=== PATIENT | female | born 1940 | race Caucasian/White ===

== ENCOUNTER 2023-10-26 05:45 | Inpatient (IN) | payer MEDICARE, OTHER ==
--- NOTE | 2023-10-26 06:37 | ED ---
Lower Extremity Injury HPI - General Chief Complaint: Extremity Injury, Lower Stated Complaint: Fall Time Seen by Provider: 10/26/23 06:11 Source: family, RN notes reviewed Mode of arrival: wheelchair Limitations: no limitations - History of Present Illness Initial Comments: This is an 83 year old female who presents to the emergency department for a fal l. Patient has a bad left knee and she got up to use the restroom last night, when she tripped on the steps and fell, landing on her left side. She has since had increasing pain to the left knee and hip. Denies hitting her head or sustaining any other injuries. Not taking thinners. Patient has dementia and has a general poor understanding of the situation and explaining herself. However, she does appear to be in severe pain. MD Complaint: knee injury - Related Data Home Medications Medication Instructions Recorded Confirmed Atorvastatin [Lipitor] 20 mg PO HS 10/26/23 10/26/23 Cholecalciferol (Vitamin D3) 50 mcg PO DAILY 10/26/23 10/26/23 [Vitamin D3 (50 Mcg = 2000 Iu)] Donepezil [Aricept] 5 mg PO DAILY 10/26/23 10/26/23 Losartan [Cozaar] 50 mg PO DAILY 10/26/23 10/26/23 Meloxicam [Mobic] 7.5 mg PO DAILY 10/26/23 10/26/23 Terbinafine [LamISIL] 250 mg PO DAILY 10/26/23 10/26/23 traMADol HCL 50 mg PO DAILY 10/26/23 10/26/23 Allergies Allergy/AdvReac Type Severity Reaction Status Date / Time No Known Allergies Allergy Verified 10/26/23 09:47 Review of Systems ROS Statement: Those systems with pertinent positive or pertinent negative responses have been documented in the HPI. ROS Other: All systems not noted in ROS Statement are negative. Past Medical History Past Medical History: Dementia, Hypertension History of Any Multi-Drug Resistant Organisms: None Reported Past Surgical History: No Surgical Hx Reported Past Psychological History: No Psychological Hx Reported Smoking Status: Never smoker Past Alcohol Use History: None Reported Past Drug Use History: None Reported General Exam Limitations: no limitations General appearance: alert, in no apparent distress Head exam: Present: atraumatic, normocephalic, normal inspection Respiratory exam: Present: normal lung sounds bilaterally. Absent: respiratory distress, wheezes, rales, rhonchi, stridor Cardiovascular Exam: Present: regular rate, normal rhythm, normal heart sounds. Absent: systolic murmur, diastolic murmur, rubs, gallop, clicks Extremities exam: Present: other (Shortening and external rotation of the left lower extremity. Tenderness to palpation of the left hip and left leg. Obvious swelling.) Neurological exam: Present: alert, oriented X3, CN II-XII intact Psychiatric exam: Present: normal affect, normal mood Skin exam: Present: warm, dry, intact, normal color. Absent: rash Course Vital Signs 10/26/23 10/26/23 06:06 11:37 Temperature 98.5 F Pulse Rate 92 86 Respiratory 18 16 Rate Blood Pressure 186/97 130/80 O2 Sat by Pulse 96 98 Oximetry Medical Decision Making - Medical Decision Making This is an 83 year old female who presents to the emergency department for a fall. Was pt. sent in by a medical professional or institution? @ -No Did you speak to anyone other than the patient for history? @ -No Did you review nursing and triage notes? @ -Yes, and I agree, it is accurate with regards to the patient's symptoms. Were old charts reviewed? @ -No Differential Diagnosis? @ -Differential Musculoskeletal: Muscular strain, contusion, ligament sprain, fracture, arthritis, septic arthritis, bursitis, cellulitis, muscle spasm, nerve compression, DVT, arterial occlusion, herpes zoster, electrolyte abnormality, tumor.... This is not meant to be in all inclusive list EKG interpreted by me (3pts min.)? @ -EKG interpreted by me demonstrating the following: Sinus rhythm. Ventricular rate 91 BPM, AK interval 195 ms, QRS duration 90 ms, QTc 409 ms. X-rays interpreted by me (1pt min.)? @ -X-ray of the Left knee obtained. My interpretation identifies no acute fractures. X-ray of the left hip and pelvis obtained. My interpretation identifies a left intertrochanteric fracture. CT interpreted by me (1pt min.)? @ -Not obtained U/S interpreted by me (1pt. min.)? @ -Not obtained What testing was considered but not performed? (CT, X-rays, U/S, labs)? Why? @ -None What meds were considered but not given? Why? @ -None Did you discuss the management of the patient with other professionals? @ -Yes, Dr. Staton, who accepts the patient for admission. Did you reconcile home meds? @ -No Was smoking cessation discussed for >3mins.? @ -No Was critical care preformed (if so, how long)? @ -No Were there social determinants of health that impacted care today? How? (Home lessness, low income, unemployed, alcoholism, drug addiction, transportation, low edu. Level, literacy, decrease access to med. care, detention, rehab)? @ -No Was there de-escalation of care discussed even if they declined? (Discuss DNR or withdrawal of care, Hospice)? @ -No What co-morbidities impacted this encounter? (DM, HTN, Smoking, COPD, CAD, Cancer, CVA, Hep., AIDS, mental health diagnosis, sleep apnea, morbid obesity)? @ -Dementia Was patient admitted / discharged? @ -Admitted. X-ray of the left knee, left hip, and pelvis obtained demonstrating a comminuted left intertrochanteric fracture of the proximal left femur with mild displacement and slight medial and posterior angulation. X-ray of the left knee reveals a trace knee joint effusion and degenerative changes without any acute fractures. Preoperative lab work, EKG, and chest x-ray were obtained. Workup found to be fairly unremarkable. Patient admitted to orthopedics with medicine listed as consult. Medicine consulted directly for quick surgical clearance and potential operative intervention today. We'll keep patient nothing by mouth for the meantime. Undiagnosed new problem with uncertain prognosis? @ -None Drug Therapy requiring intensive monitoring for toxicity (Heparin, Nitro, Insulin, Cardizem)? @ -None Were any procedures done? @ -None Diagnosis/symptom? @ -Fall, left intertrochanteric fracture Acute, or Chronic, or Acute on Chronic? @ -Acute Uncomplicated (without systemic symptoms) or Complicated (systemic symptoms)? @ -Complicated Side effects of treatment? @ -None Exacerbation, Progression, or Severe Exacerbation] @ -Not applicable Poses a threat to life or bodily function? @ -Yes This case was discussed in detail with the attending ED physician, Dr. Ely. Presentation, findings, and treatment plan discussed in detail as well. - Lab Data Result diagrams: 10/26/23 07:44 10/26/23 07:44 Lab Results 10/26/23 10/26/23 10/26/23 Range/Units 07:44 07:44 07:44 WBC 13.7 H (3.8-10.6) k/uL RBC 3.92 (3.80-5.40) m/uL Hgb 12.1 (11.4-16.0) gm/dL Hct 37.3 (34.0-46.0) % MCV 95.3 (80.0-100.0) fL MCH 30.9 (25.0-35.0) pg MCHC 32.4 (31.0-37.0) g/dL RDW 13.8 (11.5-15.5) % Plt Count 346 (150-450) k/uL MPV 6.8 Neutrophils % 84 % Lymphocytes % 8 % Monocytes % 6 % Eosinophils % 1 % Basophils % 1 % Neutrophils # 11.5 H (1.3-7.7) k/uL Lymphocytes # 1.1 (1.0-4.8) k/uL Monocytes # 0.8 (0-1.0) k/uL Eosinophils # 0.1 (0-0.7) k/uL Basophils # 0.1 (0-0.2) k/uL PT 9.8 L (10.0-12.5) sec INR 0.9 (<1.2) APTT 24.3 (22.0-30.0) sec Sodium 139 (137-145) mmol/L Potassium 4.2 (3.5-5.1) mmol/L Chloride 105 (98-107) mmol/L Carbon Dioxide 27 (22-30) mmol/L Anion Gap 7 mmol/L BUN 19 H (7-17) mg/dL Creatinine 0.96 (0.52-1.04) mg/dL Est GFR (CKD-EPI)AfAm 64 (>60 ml/min/1.73 sqM) Est GFR (CKD-EPI)NonAf 56 (>60 ml/min/1.73 sqM) Glucose 137 H (74-99) mg/dL Calcium 9.5 (8.4-10.2) mg/dL Total Bilirubin 0.6 (0.2-1.3) mg/dL AST 32 (14-36) U/L ALT 20 (4-34) U/L Alkaline Phosphatase 118 (38-126) U/L Troponin I (0.000-0.034) ng/mL Total Protein 7.1 (6.3-8.2) g/dL Albumin 4.2 (3.5-5.0) g/dL Blood Type Blood Type Confirm Blood Type Recheck Bld Type Recheck Status Antibody Screen Spec Expiration Date 10/26/23 10/26/23 10/26/23 Range/Units 07:44 07:45 07:53 WBC (3.8-10.6) k/uL RBC (3.80-5.40) m/uL Hgb (11.4-16.0) gm/dL Hct (34.0-46.0) % MCV (80.0-100.0) fL MCH (25.0-35.0) pg MCHC (31.0-37.0) g/dL RDW (11.5-15.5) % Plt Count (150-450) k/uL MPV Neutrophils % % Lymphocytes % % Monocytes % % Eosinophils % % Basophils % % Neutrophils # (1.3-7.7) k/uL Lymphocytes # (1.0-4.8) k/uL Monocytes # (0-1.0) k/uL Eosinophils # (0-0.7) k/uL Basophils # (0-0.2) k/uL PT (10.0-12.5) sec INR (<1.2) APTT (22.0-30.0) sec Sodium (137-145) mmol/L Potassium (3.5-5.1) mmol/L Chloride (98-107) mmol/L Carbon Dioxide (22-30) mmol/L Anion Gap mmol/L BUN (7-17) mg/dL Creatinine (0.52-1.04) mg/dL Est GFR (CKD-EPI)AfAm (>60 ml/min/1.73 sqM) Est GFR (CKD-EPI)NonAf (>60 ml/min/1.73 sqM) Glucose (74-99) mg/dL Calcium (8.4-10.2) mg/dL Total Bilirubin (0.2-1.3) mg/dL AST (14-36) U/L ALT (4-34) U/L Alkaline Phosphatase (38-126) U/L Troponin I <0.012 (0.000-0.034) ng/mL Total Protein (6.3-8.2) g/dL Albumin (3.5-5.0) g/dL Blood Type A Positive Blood Type Confirm A Positive Blood Type Recheck No Previous Record Bld Type Recheck Status CABO Indicated Antibody Screen NEGATIVE Spec Expiration Date 10/29/2023 - 234 - Radiology Data Radiology results: report reviewed, image reviewed Disposition Clinical Impression: Fracture, intertrochanteric, left femur, Fall Disposition: ADMITTED IP TO THIS [facility] Time of Disposition: 09:26
--- NOTE | 2023-10-26 07:44 | XR ---
EXAMINATION TYPE: XR knee complete LT DATE OF EXAM: 10/26/2023 COMPARISON: None HISTORY: 83-year-old female trauma, pain TECHNIQUE: AP, oblique, lateral views FINDINGS: There is some degenerative joint space narrowing in the medial compartment. Extensor mechanism appear s intact. Prominent spurring at the upper pole of the patella. Trace knee joint effusion is nonspecif ic and may be reactive. No acute fracture, subluxation, dislocation is seen. IMPRESSION: 1. Some degenerative joint space narrowing in the medial compartment. 2. Prominent spurring at the upper pole of the patella, possibly related to insertional quadriceps te ndinosis. 3. Trace knee joint effusion which is nonspecific. No acute osseous abnormality seen. If concern for internal derangement, MRI can be considered.
[2023-10-26] MEDS: MORPHINE SULFATE 4 MG/ML SYRINGE IM STA (07:48)
[2023-10-26] MEDS: KETOROLAC 15 MG/ML 1 ML VIAL IM STA (07:48)
[2023-10-26 08:04] LABS: Basophils # (A) 0.1 k/uL (0-0.2); Basophils % (A) 1 %; Eosinophils # (A) 0.1 k/uL (0-0.7); Eosinophils % (A) 1 %; HCT 37.3 % (34.0-46.0); HGB 12.1 gm/dL (11.4-16.0); Lymphocytes # (A) 1.1 k/uL (1.0-4.8); Lymphocytes % (A) 8 %; MCH 30.9 pg (25.0-35.0); MCHC 32.4 g/dL (31.0-37.0); MCV 95.3 fL (80.0-100.0); Mean Platelet Volume 6.8; Monocytes # (A) 0.8 k/uL (0-1.0); Monocytes % (A) 6 %; Neutrophils # (A) 11.5 k/uL (1.3-7.7); Neutrophils % (A) 84 %; Platelet Count 346 k/uL (150-450); RBC 3.92 m/uL (3.80-5.40); RDW 13.8 % (11.5-15.5); WBC 13.7 k/uL (3.8-10.6)
[2023-10-26 08:17] LABS: ALT 20 U/L (4-34); AST 32 U/L (14-36); African American GFR (CKD) 64 (>60 ml/min/1.73 sqM); Albumin 4.2 g/dL (3.5-5.0); Alkaline Phosphatase 118 U/L (38-126); Anion Gap 7 mmol/L; Blood Urea Nitrogen 19 mg/dL (7-17); Calcium 9.5 mg/dL (8.4-10.2); Carbon Dioxide 27 mmol/L (22-30); Chloride 105 mmol/L (98-107); Glucose 137 mg/dL (74-99); Non-African American GFR(CKD) 56 (>60 ml/min/1.73 sqM); Potassium 4.2 mmol/L (3.5-5.1); Sodium 139 mmol/L (137-145); Total Bilirubin 0.6 mg/dL (0.2-1.3); Total Protein 7.1 g/dL (6.3-8.2)
[2023-10-26 08:20] LABS: INR 0.9 (<1.2); Partial Thromboplastin Time 24.3 sec (22.0-30.0); Prothrombin Time 9.8 sec (10.0-12.5)
--- NOTE | 2023-10-26 08:41 | XR ---
EXAMINATION TYPE: XR Hip 2 views LT and AP Pelvis DATE OF EXAM: 10/26/2023 Comparison: None Clinical History: 83-year-old female rotated, fall hip femur pain Findings: Degenerated dextroconvex curvature lumbar spine. Osteopenia. Mild degenerative changes SI joints. Mod erate degenerative change right hip and mild of the left hip. There is comminuted intertrochanteric f racture proximal left femur with slight displacement and medial and posterior angulation. Impression: Comminuted IT fracture proximal left femur with mild displacement and slight medial and posterior ang ulation.
[2023-10-26] MEDS ORDERED: NALOXONE 0.4 MG/ML 1 ML VIAL IV PRN ×2 (09:26→15:29)
[2023-10-26] MEDS ORDERED: HYDROmorphone 1 MG/ML 1 ML SYRINGE IVP PRN (09:26)
[2023-10-26] MEDS ORDERED: ONDANSETRON 4 MG/2 ML VIAL IVP PRN (09:26)
[2023-10-26] MEDS ORDERED: HYDROmorphone 0.5 MG/0.5 ML SYRINGE IVP PRN ×4 (09:26→15:29)
[2023-10-26] MEDS: HYDROmorphone 0.5 MG/0.5 ML SYRINGE IVP STA (09:40)
--- NOTE | 2023-10-26 10:04 | XR ---
EXAMINATION TYPE: XR chest 1V DATE OF EXAM: 10/26/2023 COMPARISON: NONE HISTORY: 83-year-old female preoperative clearance for hip fracture TECHNIQUE: Single frontal view of the chest is obtained. FINDINGS: Heart upper limits of normal in size. Hazy densities relating to portable technique and louis dy habitus. Aorta and pulmonary vasculature within normal limits. No consolidation or pleural effusio n. IMPRESSION: Borderline heart size. No acute process seen.
--- NOTE | 2023-10-26 10:49 | P.CONS ---
History of Present Illness - Reason for Consult Consult date: 10/26/23 Medical management - History of Present Illness History of present illness; patient is 83-year-old lady with past medical hi story significant for dementia, hypertension presented to the ER after a fall. Patient woke up last night to use the restroom when she was walking up the steps and tripped and fell on her left side. Following that she started complaining of left hip pain. There was no loss of consciousness. There is no complaint of chest pain or shortness of breath. Because of this fall, patient was brought to the ER Initial lab work done in the ER showed WBC 13.7, hemoglobin 12.1, platelet count 346, sodium 139, potassium 4.2, BUN 19, creatinine 0.96, glucose 137, troponin 0.012 EKG done in the ER showed heart rate of 91 , no ST segment elevation or depression seen, no T-wave inversions seen. Chest x-ray done in the ER showed no acute processes X-ray left hip done showed comminuted intertrochanteric fracture of proximal left femur X-ray left knee done showed some degenerative joint space narrowing in the medial compartment Patient admitted to orthopedic service REVIEW OF SYSTEMS: CONSTITUTIONAL: No fever, no malaise, no fatigue. HEENT: No recent visual problems or hearing problems. Denied any sore throat. CARDIOVASCULAR: No chest pain, orthopnea, PND, no palpitations, no syncope. PULMONARY: No shortness of breath, no cough, no hemoptysis. GASTROINTESTINAL: No diarrhea, no nausea, no vomiting, no abdominal pain. NEUROLOGICAL: No headaches, no weakness, no numbness. HEMATOLOGICAL: Denies any bleeding or petechiae. GENITOURINARY: Denies any burning micturition, frequency, or urgency. MUSCULOSKELETAL/RHEUMATOLOGICAL: Left hip pain ENDOCRINE: Denies any polyuria or polydipsia. The rest of the 14-point review of systems is negative. PHYSICAL EXAMINATION: GENERAL: The patient is alert to self and person, not in any acute distress. Well developed, well nourished. HEENT: Pupils are round and equally reacting to light. EOMI. No scleral icterus. No conjunctival pallor. Normocephalic, atraumatic. No pharyngeal erythema. No thyromegaly. CARDIOVASCULAR: S1 and S2 present. No murmurs, rubs, or gallops. PULMONARY: Chest is clear to auscultation, no wheezing or crackles. ABDOMEN: Soft, nontender, nondistended, normoactive bowel sounds. No palpable organomegaly. MUSCULOSKELETAL: No joint swelling or deformity. EXTREMITIES: No cyanosis, clubbing, or pedal edema. NEUROLOGICAL: Gross neurological examination did not reveal any focal deficits. SKIN: No rashes. Assessment and plan Fall Comminuted intertrochanteric fracture of proximal left femur Hypertension Dementia Monitor vital signs Monitor CBC Continue IV fluid Keep patient n.p.o. Continue pain management per orthopedics Continue DVT prophylaxis per orthopedics Resume home meds Patient is medically cleared for surgery with moderate risk of complications PT and OT consulted after surgery Labs and medication were reviewed.. Continue same treatment. Continue with symptomatic treatment. Resume home medication. Monitor labs and vitals. DVT and GI prophylaxis. Further recommendations as per clinical course of the patient Dictation was produced using [employer] dictation software. please excuse any grammatical, word or spelling errors. Past Medical History Past Medical History: Dementia, Hypertension History of Any Multi-Drug Resistant Organisms: None Reported Past Surgical History: No Surgical Hx Reported Past Psychological History: No Psychological Hx Reported Smoking Status: Never smoker Past Alcohol Use History: None Reported Past Drug Use History: None Reported Medications and Allergies Home Medications Medication Instructions Recorded Confirmed Type Atorvastatin [Lipitor] 20 mg PO HS 10/26/23 10/26/23 History Cholecalciferol (Vitamin D3) 50 mcg PO DAILY 10/26/23 10/26/23 History [Vitamin D3 (50 Mcg = 2000 Iu)] Donepezil [Aricept] 5 mg PO DAILY 10/26/23 10/26/23 History Losartan [Cozaar] 50 mg PO DAILY 10/26/23 10/26/23 History Meloxicam [Mobic] 7.5 mg PO DAILY 10/26/23 10/26/23 History Terbinafine [LamISIL] 250 mg PO DAILY 10/26/23 10/26/23 History traMADol HCL 50 mg PO DAILY 10/26/23 10/26/23 History Allergies Allergy/AdvReac Type Severity Reaction Status Date / Time No Known Allergies Allergy Verified 10/26/23 09:47 Physical Exam Vitals: Vital Signs Temp Pulse Resp BP Pulse Ox 10/26/23 06:06 98.5 F 92 18 186/97 96 Intake and Output 10/25/23 10/26/23 10/26/23 22:59 06:59 14:59 Other: Weight 65.771 kg Results CBC & Chem 7: 10/26/23 07:44 10/26/23 07:44 Labs: Abnormal Lab Results - Last 24 Hours (Table) 10/26/23 10/26/23 10/26/23 Range/Units 07:44 07:44 07:44 WBC 13.7 H (3.8-10.6) k/uL Neutrophils # 11.5 H (1.3-7.7) k/uL PT 9.8 L (10.0-12.5) sec BUN 19 H (7-17) mg/dL Glucose 137 H (74-99) mg/dL
[2023-10-26] MEDS: LACTATED RINGERS 1,000 ML IV ONE ×2 (11:43→15:13)
[2023-10-26] MEDS: fentaNYL (PF) 50 MCG/ML 2 ML AMP IVP ONE (12:31)
--- NOTE | 2023-10-26 12:41 | P.ANPRN ---
Procedure Note - Anesthesia - Nerve Block Performed Left Grayson Single Time Out Performed: Yes Date of Procedure: 10/26/23 Procedure Start Time: 12:30 Procedure Stop Time: 12:36 Location of Patient: PreOp Indication: Acute Post-Operative Pain, Analgesia, Requested by Surgeon Sedation Type: Sedate with meaningful contact maintained Preparation: Sterile Prep Position: Supine Catheter: None Needle Types: Pajunk Needle Gauge: 21 Ultrasound used to visualize needle placement: Yes Ultrasound used to observe medication spread: Yes Injectate: 0.5% Ropivacaine (see comment for volume) (Ropic 25ml+dexamethason 4mg) Blood Aspirated: No Pain Paresthesia on Injection Noted: No Resistance on Injection: Normal Image Stored and Saved: Yes Events: Uneventful and Well Tolerated
--- NOTE | 2023-10-26 13:04 | P.HPOR ---
History of Present Illness H&P Date: 10/26/23 The patient is a very pleasant 83-year-old female with a medical history significant for advanced dementia who presented to the ER early this morning after a ground-level fall resulted in a left hip fracture. The patient was admitted under my care and was seen by internal medicine. I met with the patient in preoperative holding to discuss her injury. She was accompanied by her family. The patient's family denies prior left hip pain. The report a ground-level fall and an inability to ambulate. Past Medical History Past Medical History: Dementia, Hypertension History of Any Multi-Drug Resistant Organisms: None Reported Past Surgical History: No Surgical Hx Reported Past Psychological History: No Psychological Hx Reported Smoking Status: Never smoker Past Alcohol Use History: None Reported Past Drug Use History: None Reported Medications and Allergies Home Medications Medication Instructions Recorded Confirmed Type Atorvastatin [Lipitor] 20 mg PO HS 10/26/23 10/26/23 History Cholecalciferol (Vitamin D3) 50 mcg PO DAILY 10/26/23 10/26/23 History [Vitamin D3 (50 Mcg = 2000 Iu)] Donepezil [Aricept] 5 mg PO DAILY 10/26/23 10/26/23 History Losartan [Cozaar] 50 mg PO DAILY 10/26/23 10/26/23 History Meloxicam [Mobic] 7.5 mg PO DAILY 10/26/23 10/26/23 History Terbinafine [LamISIL] 250 mg PO DAILY 10/26/23 10/26/23 History traMADol HCL 50 mg PO DAILY 10/26/23 10/26/23 History Allergies Allergy/AdvReac Type Severity Reaction Status Date / Time No Known Allergies Allergy Verified 10/26/23 09:47 Physical Examination The patient is resting comfortably on a stretcher. She is alert and responds to commands but is demented. Her head is normocephalic and atraumatic. He demonstrate nonlabored breathing with symmetric chest expansion. Her abdomen is mildly obese. She has palpable pulses. Her bilateral upper extremities and right lower extremity without deformity. On inspection of the left lower extremity her leg is shortened and externally rotated. There are no overlying skin lesions or open wounds. Her thigh is moderately swollen but soft and comp ressible. She is nontender over the left knee or foot. She is moving her ankle and her toes up and down. Results X-rays of the pelvis and left hip show a comminuted peritrochanteric hip fracture with subtrochanteric extension. - Labs Labs: Abnormal Lab Results - Last 24 Hours (Table) 10/26/23 10/26/23 10/26/23 Range/Units 07:44 07:44 07:44 WBC 13.7 H (3.8-10.6) k/uL Neutrophils # 11.5 H (1.3-7.7) k/uL PT 9.8 L (10.0-12.5) sec BUN 19 H (7-17) mg/dL Glucose 137 H (74-99) mg/dL H & H 10/26/23 Range/Units 07:44 Hgb 12.1 (11.4-16.0) gm/dL Hct 37.3 (34.0-46.0) % Coagulation 10/26/23 Range/Units 07:44 INR 0.9 (<1.2) Result Diagrams: 10/26/23 07:44 10/26/23 07:44 Assessment and Plan Assessment: Left peritrochanteric hip fracture with subtrochanteric extension Dementia Plan: I met with the patient and her family to discuss treatment options. My recommendation was to stabilize her left peritrochanteric hip fracture with a long gamma nail. I discussed the procedure and the potential risks and complications at length. The patient's family is well aware of the risk of surgery but also understand that it is her best interest to stabilize the fracture to allow early mobilization. The patient is been seen and cleared by internal medicine. We will plan for surgery later this afternoon. In the interim she is to remain nothing by mouth and on strict bedrest.
[2023-10-26] MEDS ORDERED: ceFAZolin 1 GM/50 ML BAG (PMX) ONE (13:20)
[2023-10-26] MEDS ORDERED: ROCURONIUM 10 MG/ML (5 ML VIAL) IV ONE (13:20)
[2023-10-26] MEDS ORDERED: PROPOFOL 10 MG/ML 20 ML VIAL IV ONE (13:20)
[2023-10-26] MEDS ORDERED: NEOSTIGMINE 1 MG/ML 10 ML VIAL ONE (13:20)
[2023-10-26] MEDS ORDERED: ESMOLOL 100 MG/10 ML VIAL ONE (13:20)
[2023-10-26] MEDS ORDERED: DEXAMETHASONE SOD PHOSPHATE 4 MG/ML 1 ML VIAL ONE (13:20)
[2023-10-26] MEDS ORDERED: LIDOCAINE 1% INJ 10MG/ML (20 ML MDV) ONE (13:20)
[2023-10-26] MEDS ORDERED: GLYCOPYRROLATE 0.2 MG/ML 2 ML VIAL ONE (13:20)
[2023-10-26] MEDS ORDERED: SUCCINYLCHOLINE CHLORIDE 200 MG/10 ML VIAL IV ONE (13:20)
[2023-10-26] MEDS ORDERED: ePHEDrine 50 MG/ML 1 ML VIAL ONE (13:20)
[2023-10-26] MEDS ORDERED: ROPIVACAINE 5 MG/ML 30 ML VIAL ONE (13:20)
[2023-10-26] MEDS ORDERED: PHENYLEPHRINE 10 MG/ML VIAL ONE (13:20)
[2023-10-26] MEDS ORDERED: TRANEXAMIC 1,000 MG/100ML-NACL PREMIX BAG ONE (13:20)
[2023-10-26] MEDS ORDERED: HYDROmorphone (PF) 1 MG/ML ONE (13:20)
[2023-10-26] MEDS: SODIUM CHLORIDE 0.9% 100 ML with ceFAZolin 2,000 MG IV ONE (13:26)
[2023-10-26] MEDS: SODIUM CHLORIDE 0.9% 100 ML with ceFAZolin 2,000 GM IV ONE (13:26)
--- NOTE | 2023-10-26 15:18 | P.OP ---
Date of Procedure: 10/26/23 Preoperative Diagnosis: 1. Left peritrochanteric hip fracture with subtrochanteric extension 2. Dementia Postoperative Diagnosis: Same Procedure(s) Performed: Operative fixation of left intertrochanteric hip fracture with long intramedullary hip screw Anesthesia: YOKASTA Surgeon: Alejandro Staton Pneumatic Tester Mechanic #1: Carlita Oliver Estimated Blood Loss (ml): 200 IV fluids (ml): 800 Pathology: none sent Condition: stable Disposition: PACU Indications for Procedure: I met with the patient and their family preoperatively to discuss their injury and treatment options. They have an extra-capsular, intertrochanteric hip fracture and my recommendation was to stabilize the fracture with an intramedullary hip screw to facilitate early mobilization. We discussed the potential risks and complications of this surgical procedure including but certainly not limited to risks from anesthesia, superficial infection, deep infection, fracture nonunion, fracture malunion, hardware failure including broken hardware, varus collapse with lag screw cut out of the femoral head, progression of hip arthritis, limb length discrepancy, symptomatic hardware, need for further surgery including hardware removal and conversion to arthroplasty, DVT, PE, acute coronary event, pressure ulcers, urinary tract infection, failure to thrive, an inability to regain preinjury level of function, and possibly . The patient and their family understand these potential complications and also awknowledge that other less common complications are possible. They provided both their verbal and written consent to go forward with operative fixation of their hip fracture with an intramedullary hip screw. Description of Procedure: The patient was identified in preoperative holding and the correct operative extremity was marked with my initials. I reviewed the consent form with the patient and their family and all of their questions were answered. The patient was then brought back to the operating room by anesthesia. Anesthesia, preoperative antibiotics, and tranexamic acid were given by the anesthesia team while on the [facility]. Both ankles were padded with webril and boots for the [place] table were applied. The patient was then carefully transferred onto the [place] table. A perineal post was immediately placed. The contralateral arm was secured on a well-padded arm cohen. The ipsilateral arm was draped across the chest and secured with a pillow, foam, and paper tape to allow access to the proximal femur. Nonsterile drapes were applied to the operative extremity. The height of the table was elevated and the contralateral extremity was dropped towards the floor to facilitate imaging. A timeout was performed identifying the correct patient, operative extremity, and procedure. Fluoroscopy was brought in to assess the fracture. A provisional reduction was performed using longitudinal traction, adduction, and internal rotation. An AP and lateral view were obtained to assess the reduction. The operative extremity was then prepped and draped in the standard sterile fashion. A straight incision was made at the tip of the greater trochanter and extended proximally for 3 cm. Skin and subcutaneous tissues were incised sharply. The underlying fascia was incised in line with the skin incision. An awl was placed just medial to the tip of the greater trochanter on the AP view and colinear with the canal on the lateral view. A 3.2 mm guide pin was then advanced into the proximal femur. The position of the guidepin was verified with fluoroscopy. An opening reamer and soft tissue cannula were placed over the guidepin and used to open the proximal femur to the level of the lesser trochanter. The 3.2 mm guide pin and opening reamer were removed. A long ball tipped guide wire was passed from the proximal femur to the superior pole of the patella. The length was verified distally with fluoroscopy. I then reamed up to a 12.5 mm reamer. A 380 x 11 mm nail was dispensed, hooked up to the targeting arm and I verified that the trochar through the targeting arm lined up with the slots on the nail. The nail was then impacted into the proximal femur until the appropriate depth had been reached. A small stab incision was made over the lateral aspect of the femur using the targeting arm as a reference for the lag screw. Incision was carried down to the skin and fascia down to the lateral cortex of the femur. The trocar was then placed up to the lateral cortex of the femur and a guidepin was placed in the low center position on the AP view and centered in the femoral head on the lateral view. Once the position of the guidewire was verified, we reamed to appropriate depth and placed a lag screw over the guidewire and into the femoral head. The position of the lag screw was assessed with fluoroscopy. The guidewire was then removed from the femoral head. The set screw was placed proximally, brought fully down and then released a quarter turn to allow compression. 2 distal interlocking screws were placed using the freehand "perfect [place]" technique. Final fluoroscopic images were taken showing excellent reduction of the fracture and appropriate position of the implants. All wounds were thoroughly irrigated and closed in layers. Sterile dressings were applied. The drapes were taken down, the patient was transferred off the [place] table, and was brought to recovery having tolerated the procedure well. Carlita Oliver PA-C was required as a skilled campus administrative assistant due to the complexity of the surgery for patient positioning, draping, exposure, retraction, placement of implants, closure of wound, and application of dressings. PLAN: The patient can weight-bear as tolerated on their operative extremity. 2 doses of postoperative antibiotics. DVT prophylaxis with aspirin 81 mg twice a day starting the day of surgery. Dressing change on postoperative day #2. Appreciate Internal Medical assistance with perioperative medical management. Discharge planning in process.
[2023-10-26] MEDS ORDERED: hydrOXYzine pamoate 25 MG CAP PO PRN (15:29)
[2023-10-26] MEDS ORDERED: HYDROcodone/APAP 5-325MG 1 EACH TAB PO PRN (15:29)
--- NOTE | 2023-10-26 15:47 | XR ---
EXAMINATION TYPE: XR femur LT, FL guidance operating room DATE OF EXAM: 10/26/2023 COMPARISON: Radiograph earlier today HISTORY: 83 year-old female left femur fracture, gamma nailing TECHNIQUE: Intraoperative fluoroscopy FINDINGS: LEFT HIP GAMMA NAIL. FL TIME 3 MIN 46.7 SECONDS. DAP 5.[address] MCWILLIAMS 12 images are submitted. IMPRESSION: Intraoperative fluoroscopy as above.
[2023-10-26] MEDS: LACTATED RINGERS 1,000 ML IV SCH (15:50)
[2023-10-26] MEDS: ATORVASTATIN 20 MG TAB PO SCH (20:47)
[2023-10-26] MEDS: ASPIRIN 81 MG PO SCH (20:48)
[2023-10-26] MEDS: SENNOSIDES-DOCUSATE SODIUM 1 EACH TAB PO SCH (20:48)
[2023-10-26] MEDS: HYDROcodone/APAP 5-325MG 1 EACH TAB PO PRN (20:49)
--- NOTE | 2023-10-27 08:37 | P.PN ---
Subjective Progress Note Date: 10/27/23 Principal diagnosis: Peritrochanteric fracture with subtrochanteric extension left hip. Status post close reduction with insertion of long intramedullary hip screw left hip. This is an 83-year-old female who is postop day #1 status post close reduction with insertion of long intramedullary hip screw left hip for a subtrochanteric fracture. The patient is stable from an orthopedic standpoint. She continues to have some confusion secondary to her dementia. Her family is present at bedside. Vital signs are stable. Objective - Vital Signs Vital signs: Vital Signs Temp 98.4 F 10/27/23 01:10 Pulse 103 H 10/27/23 01:10 Resp 18 10/27/23 01:10 BP 112/54 10/27/23 01:10 Pulse Ox 95 10/27/23 01:10 FiO2 Intake & Output 10/26/23 10/27/23 10/27/23 18:59 06:59 18:59 Intake Total 1100 Output Total 200 200 Balance 900 -200 Weight 65.771 kg Intake: IV 1100 Output: Urine 200 Estimated Blood Loss 200 Other: Voiding Method Indwelling Catheter - Exam This is a pleasantly confused 83-year-old female in no acute distress. She is alert with some confusion. Exam of the left hip reveals that her dressings are clean, dry and intact. She has mild soft tissue swelling to the hip and thigh. She has full foot and ankle motion without difficulty or pain. Neurovascular status to the lower extremity is grossly intact. - Labs CBC & Chem 7: 10/26/23 07:44 10/26/23 07:44 Assessment and Plan (1) Subtrochanteric fracture of left femur Current Visit: Yes Status: Acute Code(s): S72.22XA - DISPLACED SUBTROCHANTERIC FRACTURE OF LEFT FEMUR, INIT SNOMED Code(s): 423833264 (2) Fracture, intertrochanteric, left femur Current Visit: Yes Status: Acute Code(s): S72.142A - DISPLACED INTERTROCHANTERIC FRACTURE OF LEFT FEMUR, INIT SNOMED Code(s): 385711471 Plan: The clinical findings are discussed with the patient and her family. We will begin to work with physical therapy today. She may be weightbearing as tolerated. We'll await further recommendations from internal medicine. Continue care.
[2023-10-27] MEDS: DONEPEZIL 5 MG TAB PO SCH (09:04)
[2023-10-27] MEDS: LOSARTAN 50 MG TAB PO SCH (09:04)
--- NOTE | 2023-10-27 13:13 | P.PN ---
Subjective Progress Note Date: 10/27/23 patient is 83-year-old lady with past medical history significant for dementia, hypertension presented to the ER after a fall. Patient woke up last night to use the restroom when she was walking up the steps and tripped and fell on her left side. Following that she started complaining of left hip pain. There was no loss of consciousness. There is no complaint of chest pain or shortness of breath. Because of this fall, patient was brought to the ER Initial lab work done in the ER showed WBC 13.7, hemoglobin 12.1, platelet count 346, sodium 139, potassium 4.2, BUN 19, creatinine 0.96, glucose 137, troponin 0.012 EKG done in the ER showed heart rate of 91 , no ST segment elevation or depression seen, no T-wave inversions seen. Chest x-ray done in the ER showed no acute processes X-ray left hip done showed comminuted intertrochanteric fracture of proximal left femur X-ray left knee done showed some degenerative joint space narrowing in the medial compartment Patient admitted to orthopedic service 10/27. Patient seen and examined with daughter at the bedside. Patient still complaining of left hip pain, will adjust patient's pain medications. REVIEW OF SYSTEMS: CONSTITUTIONAL: No fever, no malaise,. CARDIOVASCULAR: No chest pain, no palpitations, no syncope. PULMONARY: No shortness of breath, no cough, GASTROINTESTINAL: No diarrhea, no nausea, no vomiting, no abdominal pain. NEUROLOGICAL: No headaches, no weakness, PHYSICAL EXAMINATION: GENERAL: The patient is alert to self and person, not in any acute distress. Well developed, well nourished. HEENT: Pupils are round and equally reacting to light. EOMI. No scleral icterus. No conjunctival pallor. Normocephalic, atraumatic. No pharyngeal erythema. No thyromegaly. CARDIOVASCULAR: S1 and S2 present. No murmurs, rubs, or gallops. PULMONARY: Chest is clear to auscultation, no wheezing or crackles. ABDOMEN: Soft, nontender, nondistended, normoactive bowel sounds. No palpable organomegaly. MUSCULOSKELETAL: No joint swelling or deformity. EXTREMITIES: No cyanosis, clubbing, or pedal edema. NEUROLOGICAL: Gross neurological examination did not reveal any focal deficits. SKIN: No rashes. Assessment and plan Fall Comminuted intertrochanteric fracture of proximal left femur Hypertension Dementia Monitor vital signs Monitor CBC Continue IV fluid Continue pain management per orthopedics Continue DVT prophylaxis per orthopedics Continue Lipitor Continue Aricept Continue losartan PT and OT consulted Labs and medication were reviewed.. Continue same treatment. Continue with symptomatic treatment. Resume home medication. Monitor labs and vitals. DVT and GI prophylaxis. Further recommendations as per clinical course of the patient Dictation was produced using [employer] dictation software. please excuse any grammatical, word or spelling errors. Objective - Vital Signs Vital signs: Vital Signs Temp 99.4 F 10/27/23 07:02 Pulse 100 10/27/23 08:05 Resp 18 10/27/23 08:05 BP 120/66 10/27/23 07:02 Pulse Ox 93 L 10/27/23 07:02 FiO2 Intake & Output 10/26/23 10/27/23 10/27/23 18:59 06:59 18:59 Intake Total 1100 Output Total 200 200 Balance 900 -200 Weight 65.771 kg Intake: IV 1100 Output: Urine 200 Estimated Blood Loss 200 Other: Voiding Method Indwelling Catheter Indwelling Catheter - Labs CBC & Chem 7: 10/26/23 07:44 10/26/23 07:44
[2023-10-27] MEDS: HYDROcodone/APAP 5-325MG 1 EACH TAB PO PRN (13:58)
--- NOTE | 2023-10-28 09:17 | P.PN ---
Subjective Progress Note Date: 10/28/23 Principal diagnosis: Peritrochanteric fracture with subtrochanteric extension left hip. Status post close reduction with insertion of long intramedullary hip screw left hip. This is an 83-year-old female who is postop day #2 status post close reduction with insertion of long intramedullary hip screw left hip for a subtrochanteric fracture. The patient is stable from an orthopedic standpoint. She continues to have some confusion secondary to her dementia. Her family is present at bedside. Vital signs are stable. Objective - Vital Signs Vital signs: Vital Signs Temp 99.1 F 10/28/23 00:40 Pulse 125 H 10/28/23 00:40 Resp 18 10/28/23 00:40 BP 157/67 10/28/23 00:40 Pulse Ox 94 L 10/28/23 00:40 FiO2 Intake & Output 10/27/23 10/28/23 10/28/23 18:59 06:59 18:59 Other: Voiding Method Indwelling Catheter Bedside Commode External Catheter # Voids 1 - Exam This is a pleasantly confused 83-year-old female in no acute distress. She is alert with some confusion. Exam of the left hip reveals that her dressings are clean, dry and intact. She has mild to moderate soft tissue swelling to the hip and thigh. She has full foot and ankle motion without difficulty or pain. Neurovascular status to the lower extremity is grossly intact. - Labs CBC & Chem 7: 10/26/23 07:44 10/26/23 07:44 Assessment and Plan (1) Subtrochanteric fracture of left femur Current Visit: Yes Status: Acute Code(s): S72.22XA - DISPLACED SUBTROCHANTERIC FRACTURE OF LEFT FEMUR, INIT SNOMED Code(s): 027256740 (2) Fracture, intertrochanteric, left femur Current Visit: Yes Status: Acute Code(s): S72.142A - DISPLACED INTERTROCHANTERIC FRACTURE OF LEFT FEMUR, INIT SNOMED Code(s): 155850886 Plan: The clinical findings are discussed with the patient and her family. We will continue to work with physical therapy. She may be weightbearing as tolerated. We'll await further recommendations from internal medicine. Continue care.
[2023-10-28 09:59] LABS: HCT 19.2 % (37.2-46.3); HGB 6.2 g/dL (12.0-15.0); MCH 31.6 pg (27.0-32.0); MCHC 32.3 g/dL (32.0-37.0); Mean Platelet Volume 9.8 FL (9.5-12.2); NRBC Per 100 WBC 0 X 10*3/uL (0.00-0.01); Platelet Count 233 X 10*3/uL (140-440); RBC 1.96 X 10*6/uL (4.10-5.20); RDW 14.5 % (11.5-14.5); WBC 8.89 X 10*3/uL (4.50-10.00)
[2023-10-28 10:10] LABS: ALT 9 U/L (8-44); AST 28 U/L (13-35); Albumin/Globulin Ratio 1.67 Ratio (1.60-3.17); Alkaline Phosphatase 64 U/L (41-126); BUN/Creat Ratio 15.82 Ratio (12.00-20.00); Blood Urea Nitrogen 17.4 mg/dL (9.0-27.0); Calcium 7.8 mg/dL (8.7-10.3); Carbon Dioxide 26.8 mmol/L (21.6-31.8); Chloride 104 mmol/L (96-109); Globulin 1.8 g/dL (1.6-3.3); Glucose 112 mg/dL (70-110); Potassium 3.7 mmol/L (3.5-5.5); Sodium 138 mmol/L (135-145); Total Bilirubin 0.3 mg/dL (0.3-1.2); Total Protein 4.8 g/dL (6.2-8.2)
[2023-10-28 11:19] LABS: HCT 20.2 % (34.0-46.0); MCH 31.5 pg (25.0-35.0); MCHC 32.4 g/dL (31.0-37.0); MCV 97.3 fL (80.0-100.0); Mean Platelet Volume 7.2; Platelet Count 275 k/uL (150-450); RBC 2.07 m/uL (3.80-5.40); RDW 14.1 % (11.5-15.5); WBC 9.3 k/uL (3.8-10.6)
[2023-10-28 11:54] LABS: HGB 6.5 gm/dL (11.4-16.0)
--- NOTE | 2023-10-28 12:44 | P.PN ---
Subjective Progress Note Date: 10/28/23 patient is 83-year-old lady with past medical history significant for dementia, hypertension presented to the ER after a fall. Patient woke up last night to use the restroom when she was walking up the steps and tripped and fell on her left side. Following that she started complaining of left hip pain. There was no loss of consciousness. There is no complaint of chest pain or shortness of breath. Because of this fall, patient was brought to the ER Initial lab work done in the ER showed WBC 13.7, hemoglobin 12.1, platelet count 346, sodium 139, potassium 4.2, BUN 19, creatinine 0.96, glucose 137, troponin 0.012 EKG done in the ER showed heart rate of 91 , no ST segment elevation or depression seen, no T-wave inversions seen. Chest x-ray done in the ER showed no acute processes X-ray left hip done showed comminuted intertrochanteric fracture of proximal left femur X-ray left knee done showed some degenerative joint space narrowing in the medial compartment Patient admitted to orthopedic service 10/27. Patient seen and examined with daughter at the bedside. Patient still complaining of left hip pain, will adjust patient's pain medications. 10/28. Patient seen and examined. Blood work drawn this morning showed hemoglobin of 6.2, thigh looks swollen, will order ultrasound of left thigh and CT abdominal pelvis. REVIEW OF SYSTEMS: CONSTITUTIONAL: No fever, no malaise,. CARDIOVASCULAR: No chest pain, no palpitations, no syncope. PULMONARY: No shortness of breath, no cough, GASTROINTESTINAL: No diarrhea, no nausea, no vomiting, no abdominal pain. NEUROLOGICAL: No headaches, no weakness, PHYSICAL EXAMINATION: GENERAL: The patient is alert to self and person, not in any acute distress. Well developed, well nourished. HEENT: Pupils are round and equally reacting to light. EOMI. No scleral icterus. No conjunctival pallor. Normocephalic, atraumatic. No pharyngeal erythema. No thyromegaly. CARDIOVASCULAR: S1 and S2 present. No murmurs, rubs, or gallops. PULMONARY: Chest is clear to auscultation, no wheezing or crackles. ABDOMEN: Soft, nontender, nondistended, normoactive bowel sounds. No palpable organomegaly. MUSCULOSKELETAL: Left hip surgical incision seen, left thigh is swollen, no erythema or bruising seen EXTREMITIES: No cyanosis, clubbing, or pedal edema. NEUROLOGICAL: Gross neurological examination did not reveal any focal deficits. SKIN: No rashes. Assessment and plan Fall Comminuted intertrochanteric fracture of proximal left femur Hypertension Dementia Monitor vital signs Monitor CBC, hemoglobin this morning is 6.2, Transfuse 1 unit of packed red blood cell Ordered ultrasound of left thigh Order CT abdomen pelvis without contrast to rule out retroperitoneal bleed Continue pain management per orthopedics Continue DVT prophylaxis per orthopedics Continue Lipitor Continue Aricept Continue losartan Lipitor following PT and OT following Labs and medication were reviewed.. Continue same treatment. Continue with symptomatic treatment. Resume home medication. Monitor labs and vitals. DVT and GI prophylaxis. Further recommendations as per clinical course of the patient Dictation was produced using [employer] dictation software. please excuse any grammatical, word or spelling errors. Objective - Vital Signs Vital signs: Vital Signs Temp 98.5 F 10/28/23 07:26 Pulse 105 H 10/28/23 07:26 Resp 19 10/28/23 07:26 BP 158/61 10/28/23 07:26 Pulse Ox 93 L 10/28/23 07:26 FiO2 Intake & Output 10/27/23 10/28/23 10/28/23 18:59 06:59 18:59 Other: Voiding Method Indwelling Catheter Bedside Commode External Catheter # Voids 1 - Labs CBC & Chem 7: 10/28/23 10:41 10/28/23 06:04 Labs: Abnormal Lab Results - Last 24 Hours (Table) 10/28/23 10/28/23 Range/Units 06:04 06:04 RBC 1.96 L (4.10-5.20) X 10*6/uL Hgb 6.2 A* (12.0-15.0) g/dL Hct 19.2 A* (37.2-46.3) % MCV 98.0 H (80.0-97.0) FL Est GFR (CKD-EPI) 50 L (>=60) Glucose 112 H (70-110) mg/dL Calcium 7.8 L (8.7-10.3) mg/dL Total Protein 4.8 L (6.2-8.2) g/dL Albumin 3.0 L (3.8-4.9) g/dL
--- NOTE | 2023-10-28 13:47 | US ---
EXAMINATION TYPE: US extremity nonvasculr [facility] LT DATE OF EXAM: 10/28/2023 COMPARISON: NONE CLINICAL INDICATION: Female, 83 years old with history of swelling; swelling left thigh, rule out hem atoma TECHNIQUE: Grayscale imaging of the medial knee. FINDINGS: soft tissue edema left thigh. small fluid collection medial left knee = 4.3 x 0.7 x 3.2cm this is felt to be separate from the joint space. Subcutaneous edema seen throughout the exam. IMPRESSION: 1. Anechoic fluid collection possibly relating to seroma less likely hematoma given its appearance. Phase could represent more focal edema given edema throughout the leg. 2. Subcutaneous edema throughout the exam.
[2023-10-28] MEDS: HYDROcodone/APAP 10-325MG 1 EACH TAB PO PRN (14:16)
--- NOTE | 2023-10-28 14:32 | CT ---
EXAMINATION TYPE: CT abdomen pelvis wo con CT DLP: 713 mGycm, Automated exposure control for dose reduction was used. DATE OF EXAM: 10/28/2023 2:07 PM COMPARISON: None CLINICAL INDICATION:Female, 83 years old with history of Anemia, rule out retroperitoneal bleed; TECHNIQUE: Axial CT abdomen pelvis wo con;Sagittal and coronal reformats were created on a separate workstation. Contrast used: mL of , (none if empty) Oral contrast used: (none if empty) FINDINGS: LOWER CHEST: Unremarkable ABDOMEN LIVER: Unremarkable GALLBLADDER AND BILE DUCTS: Unremarkable. PANCREAS: Unremarkable. SPLEEN: Unremarkable. ADRENAL GLANDS: Unremarkable. KIDNEYS AND URETERS: No evidence of hydronephrosis or renal calculus. The ureters are unremarkable. PELVIS BLADDER: Gas in the lumen the bladder in the nondependent portion likely secondary to recent instrume ntation. REPRODUCTIVE: Unremarkable. ABDOMEN & PELVIS STOMACH AND BOWEL: No evidence of bowel obstruction. PERITONEUM/RETROPERITONEUM: No evidence of pneumoperitoneum or free fluid. VASCULATURE: Severe atherosclerotic calcifications are present throughout the abdominal aorta and its branches. No evidence of aortic aneurysm. MUSCULOSKELETAL: Left hip fracture with fixation changes. Subcutaneous gas present. Multiple fracture s lines are identified. Hardware appears intact. LYMPH NODES: No gross evidence for lymphadenopathy. SOFT TISSUE/ABDOMINAL WALL: Unremarkable IMPRESSION: No evidence of retroperitoneal bleed.
[2023-10-28 16:28] LABS: Basophils # (A) 0.1 k/uL (0-0.2); Basophils % (A) 1 %; Eosinophils # (A) 0.2 k/uL (0-0.7); Eosinophils % (A) 2 %; HCT 20.8 % (34.0-46.0); Hypochromasia Slight; Lymphocytes # (A) 1.4 k/uL (1.0-4.8); Lymphocytes % (A) 14 %; MCH 31.9 pg (25.0-35.0); MCHC 32.4 g/dL (31.0-37.0); MCV 98.2 fL (80.0-100.0); Mean Platelet Volume 7.3; Monocytes # (A) 0.9 k/uL (0-1.0); Monocytes % (A) 9 %; Neutrophils # (A) 7.3 k/uL (1.3-7.7); Neutrophils % (A) 73 %; Platelet Count 266 k/uL (150-450); RBC 2.11 m/uL (3.80-5.40); RDW 14.1 % (11.5-15.5)
[2023-10-28 16:36] LABS: HGB 6.7 gm/dL (11.4-16.0)
[2023-10-28] MEDS: ACETAMINOPHEN TAB 325 MG TAB PO PRN (21:40)
--- NOTE | 2023-10-29 07:49 | P.PN ---
Subjective The patient is doing okay this morning. Her family member at bedside reports she still having pain as expected in her left hip. She's been transfused for hemoglobin less than 7. No other acute events. Objective - Vital Signs Vital signs: Vital Signs Temp 99.0 F 10/29/23 01:11 Pulse 96 10/29/23 01:11 Resp 17 10/29/23 01:11 BP 125/64 10/29/23 01:11 Pulse Ox 96 10/29/23 01:11 FiO2 Intake & Output 10/28/23 10/29/23 10/29/23 18:59 06:59 18:59 Intake Total 0 310 Output Total 1100 Balance 0 -790 Intake: Blood Product 0 310 Rc As-1 Unit 0 310 [id number] Output: Urine 1100 Other: Voiding Method Bedside Commode Bedside Commode # Voids 8 - Exam The patient is sleeping in bed. On inspection of the left leg is moderately swollen at the thigh and calf are soft and compressible. Her dressings are intact with no active drainage. - Labs CBC & Chem 7: 10/28/23 15:59 10/28/23 06:04 Labs: Abnormal Lab Results - Last 24 Hours (Table) 10/26/23 10/28/23 10/28/23 Range/Units 07:45 06:04 06:04 RBC 1.96 L (4.10-5.20) X 10*6/uL Hgb 6.2 A* (12.0-15.0) g/dL Hct 19.2 A* (37.2-46.3) % MCV 98.0 H (80.0-97.0) FL Est GFR (CKD-EPI) 50 L (>=60) Glucose 112 H (70-110) mg/dL Calcium 7.8 L (8.7-10.3) mg/dL Total Protein 4.8 L (6.2-8.2) g/dL Albumin 3.0 L (3.8-4.9) g/dL Crossmatch See Detail 10/28/23 10/28/23 Range/Units 10:41 15:59 RBC 2.07 L 2.11 L (4.10-5.20) X 10*6/uL Hgb 6.5 L* D 6.7 L* (12.0-15.0) g/dL Hct 20.2 L 20.8 L (37.2-46.3) % MCV (80.0-97.0) FL Est GFR (CKD-EPI) (>=60) Glucose (70-110) mg/dL Calcium (8.7-10.3) mg/dL Total Protein (6.2-8.2) g/dL Albumin (3.8-4.9) g/dL Crossmatch Assessment and Plan Assessment: Postoperative day #3 status post left long gamma nail for subtrochanteric femur fracture Plan: Medical events over the last several days noted. The patient's exam of the left leg is relatively benign as there is only moderate swelling in the thigh is soft. Her incisions and dressings are intact with no drainage. I think it is unlikely that she has active and ongoing bleeding into her thigh. Continue treatment as outlined previously. We will plan on transferring care to internal medicine today for continued medical management and discharge planning.
--- NOTE | 2023-10-29 08:07 | P.PN ---
Subjective Progress Note Date: 10/29/23 Principal diagnosis: Peritrochanteric fracture with subtrochanteric extension left hip. Status post close reduction with insertion of long intramedullary hip screw left hip. This is an 83-year-old female who is postop day #3 status post closed reduction with insertion of long intramedullary hip screw left hip for a subtrochanteric fracture. The patient is stable from an orthopedic standpoint. She continues to have some confusion secondary to her dementia. Her family is present at bedside. Vital signs are stable. Objective - Vital Signs Vital signs: Vital Signs Temp 99.0 F 10/29/23 01:11 Pulse 96 10/29/23 01:11 Resp 17 10/29/23 01:11 BP 125/64 10/29/23 01:11 Pulse Ox 96 10/29/23 01:11 FiO2 Intake & Output 10/28/23 10/29/23 10/29/23 18:59 06:59 18:59 Intake Total 0 310 Output Total 1100 Balance 0 -790 Intake: Blood Product 0 310 Rc As-1 Unit 0 310 [id number] Output: Urine 1100 Other: Voiding Method Bedside Commode Bedside Commode # Voids 8 - Exam This is a pleasantly confused 83-year-old female in no acute distress. She is resting comfortably. Exam of the left hip reveals that her dressings are clean, dry and intact. She has mild to moderate soft tissue swelling to the hip and thigh. Neurovascular status to the lower extremity is grossly intact. - Labs CBC & Chem 7: 10/28/23 15:59 10/28/23 06:04 Labs: Abnormal Lab Results - Last 24 Hours (Table) 10/26/23 10/28/23 10/28/23 Range/Units 07:45 06:04 06:04 RBC 1.96 L (4.10-5.20) X 10*6/uL Hgb 6.2 A* (12.0-15.0) g/dL Hct 19.2 A* (37.2-46.3) % MCV 98.0 H (80.0-97.0) FL Est GFR (CKD-EPI) 50 L (>=60) Glucose 112 H (70-110) mg/dL Calcium 7.8 L (8.7-10.3) mg/dL Total Protein 4.8 L (6.2-8.2) g/dL Albumin 3.0 L (3.8-4.9) g/dL Crossmatch See Detail 10/28/23 10/28/23 Range/Units 10:41 15:59 RBC 2.07 L 2.11 L (4.10-5.20) X 10*6/uL Hgb 6.5 L* D 6.7 L* (12.0-15.0) g/dL Hct 20.2 L 20.8 L (37.2-46.3) % MCV (80.0-97.0) FL Est GFR (CKD-EPI) (>=60) Glucose (70-110) mg/dL Calcium (8.7-10.3) mg/dL Total Protein (6.2-8.2) g/dL Albumin (3.8-4.9) g/dL Crossmatch Assessment and Plan (1) Subtrochanteric fracture of left femur Current Visit: Yes Status: Acute Code(s): S72.22XA - DISPLACED SUBTROCHANTERIC FRACTURE OF LEFT FEMUR, INIT SNOMED Code(s): 633209720 (2) Fracture, intertrochanteric, left femur Current Visit: Yes Status: Acute Code(s): S72.142A - DISPLACED INTERTROCHANTERIC FRACTURE OF LEFT FEMUR, INIT SNOMED Code(s): 581697273 Plan: The clinical findings are discussed with the patient and her family. We will continue to work with physical therapy. She may be weightbearing as tolerated. We'll await further recommendations from internal medicine. Continue care. Discharge to inpatient rehab today if cleared medically.
[2023-10-29 12:08] LABS: Basophils # (A) 0.1 k/uL (0-0.2); Basophils % (A) 1 %; Eosinophils # (A) 0.3 k/uL (0-0.7); Eosinophils % (A) 3 %; HCT 24.3 % (34.0-46.0); HGB 8.1 gm/dL (11.4-16.0); Lymphocytes # (A) 1.4 k/uL (1.0-4.8); Lymphocytes % (A) 16 %; MCH 31.7 pg (25.0-35.0); MCHC 33.2 g/dL (31.0-37.0); MCV 95.4 fL (80.0-100.0); Mean Platelet Volume 7.5; Monocytes # (A) 0.7 k/uL (0-1.0); Monocytes % (A) 8 %; Neutrophils # (A) 6.2 k/uL (1.3-7.7); Neutrophils % (A) 71 %; Platelet Count 281 k/uL (150-450); Poikilocytosis Slight; RBC 2.54 m/uL (3.80-5.40); RDW 14.7 % (11.5-15.5); WBC 8.8 k/uL (3.8-10.6)
--- NOTE | 2023-10-29 17:09 | CDI ---
Documentation Clarification Form Date: 10/29/2023 04:51:26 PM From: Arsaeli Cruz RN, CCDS Email: [email or web address] Admit Date: 10/26/2023 09:28:00 AM Patient Name: Mirian Morgan Visit Number: [id number] Discharge Date: ATTENTION: The Clinical Documentation Specialists (CDI) and [facility] Coding Staff appreciate your assistance in clarifying documentation. Please respond to the clarification below the line at the bottom and electronically sign. The CDI & [facility] Coding staff will review the response and follow-up if needed. Please note: Queries are made part of the Legal Health Record. If you have any questions, please contact the author of this message via ITS. Dr. Iglesia Villaseñor Your patient has a drop in hemoglobin/hematocrit after surgery. Please clarify if there is an additional diagnosis and/or clinical significance related to these lab values. History/Risk Factors: advanced dementia who presented to the ER after a ground- level fall which resulted in a left hip fracture. S/P Operative fixation of left intertrochanteric hip fracture with long intramedullary hip screw. Clinical indicators: Op note: EBL: 200mL 10/26 Hgb/Hct: 12.1/37.3 10/28 Hgb/Hct: 6.2/19.2 10/29 Ortho: "She's been transfused for hemoglobin less than 7." Treatment: Monitor H/H. 1unit PRBC's on 10/28 Is there an additional diagnosis and/or clinical significance related to the above lab result/information: [ ] Acute blood loss anemia [ ] No additional diagnosis [ ] Unable to determine [ ] Other, please specify MTDD
[2023-10-29] MEDS ORDERED: hydrALAZINE HCL 20 MG/ML 1 ML VIAL IVP PRN (20:26)
--- NOTE | 2023-10-29 21:24 | PN ---
PROGRESS NOTE OBJECTIVE: An 83-year-old female, trochanteric fracture subtrochanteric extension of left hip, status post closed reduction with insertion of long intermedullary screw to left hip, some confusion for dementia. Hemoglobin was low. We will recheck hemoglobin as 6.7. Blood transfusion was given yesterday. OBJECTIVE: CARDIOVASCULAR: S1, S2. LUNGS: Clear. She has possibly worsening dementia secondary to severe anemia, metabolic encephalopathy, severe anemia, status post subtrochanteric fracture, and intertrochanteric fracture. Check hemoglobin PT OT. Home medications have been reordered. PROGNOSIS: Guarded. MMODL / IJN: [id number] /
[2023-10-30] MEDS: PANTOPRAZOLE SODIUM 40 MG GRANULE PKT PO STA (02:15)
[2023-10-30] MEDS: carvediloL 3.125 MG TAB PO SCH (02:15)
--- NOTE | 2023-10-30 08:56 | P.DS ---
Providers Date of admission: 10/26/23 09:28 Expected date of discharge: 10/30/23 Attending physician: Alejandro Satton Consults: 10/26/23 09:28 Consult Physician Urgent Consulting Provider: Al Andrade Reason/Comments: Medical management Do you want consulting provider notified?: Yes Primary care physician: Al Andrade - Discharge Diagnosis(es) (1) Subtrochanteric fracture of left femur Current Visit: Yes Status: Acute (2) Fracture, intertrochanteric, left femur Current Visit: Yes Status: Acute Hospital Course: This is a 83-year-old female who is admitted to [facility] on 10/26/2023 after falling and sustaining injury to the left hip. On exam and x- ray in the emergency department he is found to have an intertrochanteric fracture of the left hip with subtrochanteric extension. She is admitted to our service for surgical intervention and care. Patient is taken to surgery for close reduction and insertion of long intramedullary hip screw of the left hip. The procedure was performed without complication or sequelae. The patient is doing fairly well postoperatively. Vital signs and labs are stable on postoperative day # 4. Hemoglobin is 8.1 on day of discharge. Patient is discharged to inpatient rehab in stable condition. Please see med rec for accurate list of discharge medications. Patient Condition at Discharge: Stable Plan - Discharge Summary Discharge Rx Participant: No New Discharge Prescriptions: New Aspirin [Adult Low Dose Aspirin EC] 81 mg PO BID #1 tab HYDROcodone/APAP 5-325MG [Malone 5-325] 1 - 2 tab PO Q6HR PRN #32 tab PRN Reason: Pain Sennosides-Docusate Sodium [Senokot-S] 1 tab PO BID #60 tablet No Action Losartan [Cozaar] 50 mg PO DAILY Atorvastatin [Lipitor] 20 mg PO HS traMADol HCL 50 mg PO DAILY Meloxicam [Mobic] 7.5 mg PO DAILY Donepezil [Aricept] 5 mg PO DAILY Terbinafine [LamISIL] 250 mg PO DAILY Cholecalciferol (Vitamin D3) [Vitamin D3 (50 Mcg = 2000 Iu)] 50 mcg PO DAILY Discharge Medication List Atorvastatin [Lipitor] 20 mg PO HS 10/26/23 [History] Cholecalciferol (Vitamin D3) [Vitamin D3 (50 Mcg = 2000 Iu)] 50 mcg PO DAILY 10/26/23 [History] Donepezil [Aricept] 5 mg PO DAILY 10/26/23 [History] Losartan [Cozaar] 50 mg PO DAILY 10/26/23 [History] Meloxicam [Mobic] 7.5 mg PO DAILY 10/26/23 [History] Terbinafine [LamISIL] 250 mg PO DAILY 10/26/23 [History] traMADol HCL 50 mg PO DAILY 10/26/23 [History] Aspirin [Adult Low Dose Aspirin EC] 81 mg PO BID #1 tab 10/28/23 [Rx] HYDROcodone/APAP 5-325MG [Malone 5-325] 1 - 2 tab PO Q6HR PRN #32 tab 10/28/23 [Rx] Sennosides-Docusate Sodium [Senokot-S] 1 tab PO BID #60 tablet 10/28/23 [Rx] Follow up Appointment(s)/Referral(s): Al Andrade MD [Primary Care Provider] - 1-2 days Alejandro Staton MD [Medical Doctor] - 3 Weeks Activity/Diet/Wound Care/Special Instructions: May bear weight as tolerated with walker. May shower. Report any problems to our office. [phone]. Discharge Disposition: TRANSFER TO SNF/ECF
[2023-10-30] MEDS: IPRATROPIUM-ALBUTEROL 3 ML NEB INHALATION SCH (09:09)
[2023-10-30] MEDS: HYDROcodone/APAP 5-325MG 1 EACH TAB PO PRN ×2 (10:56→18:37)
[2023-10-30] MEDS: PANTOPRAZOLE SODIUM 40 MG GRANULE PKT PO SCH (10:59)
[2023-10-30] MEDS: MAGNESIUM HYDROXIDE 2,400 MG/30 ML CUP PO PRN (11:11)
[2023-10-30 12:57] LABS: Basophils # (A) 0.08 X 10*3/uL (0.00-0.10); Basophils % (A) 0.9 %; Eosinophils # (A) 0.36 X 10*3/uL (0.04-0.35); HCT 23.9 % (37.2-46.3); HGB 7.6 g/dL (12.0-15.0); Lymphocytes # (A) 1.93 X 10*3/uL (0.90-5.00); Lymphocytes % (A) 21.3 %; MCH 30.8 pg (27.0-32.0); MCHC 31.8 g/dL (32.0-37.0); MCV 96.8 FL (80.0-97.0); Mean Platelet Volume 9.8 FL (9.5-12.2); Monocytes # (A) 1.02 X 10*3/uL (0.20-1.00); Monocytes % (A) 11.2 %; NRBC Per 100 WBC 0 X 10*3/uL (0.00-0.01); Neutrophils # (A) 5.64 X 10*3/uL (1.80-7.70); Neutrophils % (A) 62.2 %; Platelet Count 307 X 10*3/uL (140-440); RBC 2.47 X 10*6/uL (4.10-5.20); WBC 9.07 X 10*3/uL (4.50-10.00)
[2023-10-30] MEDS: FERROUS SULFATE 325 MG TAB PO SCH (13:00)
[2023-10-30 13:16] LABS: ALT 11 U/L (8-44); AST 24 U/L (13-35); Albumin 3.1 g/dL (3.8-4.9); Albumin/Globulin Ratio 1.55 Ratio (1.60-3.17); Alkaline Phosphatase 72 U/L (41-126); BUN/Creat Ratio 13.25 Ratio (12.00-20.00); Blood Urea Nitrogen 10.6 mg/dL (9.0-27.0); Calcium 8.6 mg/dL (8.7-10.3); Carbon Dioxide 26.7 mmol/L (21.6-31.8); Chloride 103 mmol/L (96-109); Glucose 100 mg/dL (70-110); Sodium 139 mmol/L (135-145); Total Bilirubin 0.7 mg/dL (0.3-1.2); Total Protein 5.1 g/dL (6.2-8.2)
--- NOTE | 2023-10-30 14:09 | XR ---
EXAMINATION TYPE: XR ankle limited 2 views LT DATE OF EXAM: 10/30/2023 COMPARISON: NONE HISTORY: 83-year-old female left ankle pain, rule out fracture TECHNIQUE: 2 views FINDINGS: Limited 2 views. There is generalized soft tissue swelling. No mortise view is provided. No acute fra cture, subluxation, dislocation seen. Tiny plantar heel spur. Vascular calcifications. IMPRESSION: Generalized soft tissue swelling. No acute fracture identified on these 2 views. Mortise view not pro vided.
--- NOTE | 2023-10-30 14:53 | P.PN ---
Subjective Progress Note Date: 10/30/23 This is an 83-year-old female who is status post intramedullary rodding of the left femur. Patient is seen and evaluated at bedside today. Patient states that she has noticed quite a bit of pain in her left ankle when she attempted to stand today. Patient is also noticing some swelling near the left ankle. Patient denies any fever/chills, chest pain, shortness breath, abdominal pain, numbness, weakness or tingling. Objective - Vital Signs Vital signs: Vital Signs Temp 98.6 F 10/30/23 07:13 Pulse 104 H 10/30/23 12:51 Resp 18 10/30/23 07:13 BP 160/80 10/30/23 07:13 Pulse Ox 96 10/30/23 07:13 FiO2 Intake & Output 10/29/23 10/30/23 10/30/23 18:59 06:59 18:59 Output Total 1075 1000 Balance -1075 -1000 Output: Urine 1075 1000 Other: Voiding Method Bedside Commode External Catheter - Exam Vital signs are stable. Patient is in no acute distress and is alert and oriented 3. Calf is soft and nontender to palpation. Dressing is clean, dry, and intact. There is tenderness to palpation over the lateral aspect of the left ankle. Patient has limited motion of the left ankle secondary to pain. Sensation intact. Neurovascular status and circulatory status are intact. - Labs CBC & Chem 7: 10/30/23 06:42 10/30/23 06:42 Labs: Abnormal Lab Results - Last 24 Hours (Table) 10/30/23 10/30/23 Range/Units 06:42 06:42 RBC 2.47 L (4.10-5.20) X 10*6/uL Hgb 7.6 L (12.0-15.0) g/dL Hct 23.9 L (37.2-46.3) % MCHC 31.8 L (32.0-37.0) g/dL RDW 15.0 H (11.5-14.5) % Monocytes # 1.02 H (0.20-1.00) X 10*3/uL Eosinophils # 0.36 H (0.04-0.35) X 10*3/uL Calcium 8.6 L (8.7-10.3) mg/dL Total Protein 5.1 L (6.2-8.2) g/dL Albumin 3.1 L (3.8-4.9) g/dL Albumin/Globulin Ratio 1.55 L (1.60-3.17) Ratio Assessment and Plan (1) Left ankle pain Current Visit: Yes Status: Acute Code(s): M25.572 - PAIN IN LEFT ANKLE AND JOINTS OF LEFT FOOT SNOMED Code(s): 530559028 (2) Fall Current Visit: Yes Status: Acute Code(s): W19.XXXA - UNSPECIFIED FALL, INITIAL ENCOUNTER SNOMED Code(s): 2462482 (3) Subtrochanteric fracture of left femur Current Visit: Yes Status: Acute Code(s): S72.22XA - DISPLACED SUBTROCHANTERIC FRACTURE OF LEFT FEMUR, INIT SNOMED Code(s): 495589492 Plan: Continue routine postop care and pain control. Continue anticoagulation. Weightbearing as tolerated with a walker. X-rays of the left ankle are reviewed and are negative. Leave dressing in place for 7 days. Appreciate input from internal medicine. Anticipate discharge to ECF in the next 24-48 hours.
[2023-10-30] MEDS: SODIUM FERRIC GLUCONAT-SUCROSE 125 MG in SODIUM CHLORIDE 0.9% 100 ML IVPB SCH (16:21)
[2023-10-30] MEDS: LACTULOSE 20 GM/30 ML CUP PO PRN (16:21)
[2023-10-30 21:21] VITALS: RESP 16
--- NOTE | 2023-10-31 02:01 | PN ---
PROGRESS NOTE SUBJECTIVE: This is an 83-year-old white female, supposed to go to rehab. She is up ambulating better today. She is breathing better with upper airways treatments. Discharge planning was involved. Hemoglobin dropped into the 7s from 8.1 down to 7.7. Will give IV Venofer tonight and then in the morning. Check CBC in the morning and possible discharge home tomorrow to custodial for another week of physical therapy. OBJECTIVE: LUNGS: Clear. CARDIOVASCULAR: S1, S2. PSYCH: Fair mood and affect. MUSCULOSKELETAL: She still has significant weakness in her left leg. Right leg is moving better, but she is up ambulating. Possible discharge home tomorrow depending on her anemia status post IV Venofer for 2 doses. Breathing is improved with updraft treatments. Blood pressure is improved. PROGNOSIS: Guarded. MMODL / IJN: [id number] /
[2023-10-31] MEDS: PANTOPRAZOLE 40 MG TABLET PO SCH (06:00)
--- NOTE | 2023-10-31 10:29 | P.DS ---
Providers Date of admission: 10/26/23 09:28 Expected date of discharge: 10/31/23 Attending physician: Alejandro Staton Consults: 10/26/23 09:28 Consult Physician Urgent Consulting Provider: Al Andrade Reason/Comments: Medical management Do you want consulting provider notified?: Yes Primary care physician: Al Andrade - Discharge Diagnosis(es) (1) Left ankle pain Current Visit: Yes Status: Acute (2) Fall Current Visit: Yes Status: Acute (3) Subtrochanteric fracture of left femur Current Visit: Yes Status: Acute Hospital Course: This is an 83-year-old female who sustained a fracture of her left hip after a fall. The patient presented for evaluation in the emergency room. After discussion and consideration patient elects to proceed with insertion of long intramedullary hip screw for left intertrochanteric hip fracture with subtrochanteric extension. The patient is seen preoperatively by Dr. Staton and medically cleared for surgery by internal medicine. Patient is admitted to [facility] on 10/26/2023 and insertion of long intramedullary hip screw is performed on 10/26/2023. The procedure is performed without complication or sequelae. The patient is doing well postoperatively. Labs and vital signs are stable on day of discharge. The patient's initial discharge was postponed due to low hemoglobin and this has been treated. The patient had pain in the left ankle and x-rays were negative for any fracture or dislocation. On day of discharge patient's hip incision is healing well. There is minimal erythema. There is no drainage noted at this time. There is minimal soft tissue swelling to the hip and thigh. Patient has full foot and ankle motion without difficulty or pain. Calf is soft and nontender to palpation. Neurovascular status to the left lower extremity is intact. Patient is discharged to rehab in good condition. Please see med rec for accurate list of home medications. Patient Condition at Discharge: Stable Plan - Discharge Summary Discharge Rx Participant: No New Discharge Prescriptions: New Aspirin [Adult Low Dose Aspirin EC] 81 mg PO BID #1 tab HYDROcodone/APAP 5-325MG [[place] 5-325] 1 - 2 tab PO Q6HR PRN #32 tab PRN Reason: Pain Aspirin 81 mg PO BID tab carvediloL [Coreg] 1.5625 mg PO BID-W/MEALS tab Acetaminophen Tab [Tylenol] 650 mg PO Q6HR PRN tab PRN Reason: Mild Pain Or Fever > 100.5 Magnesium Hydroxide [Milk of Magnesia] 2,400 mg PO DAILY PRN ml PRN Reason: Constipation Pantoprazole [Protonix] 40 mg PO AC-BRKFST tab Sennosides-Docusate Sodium [Senokot-S] 2 each PO HS tab hydrOXYzine pamoate [Vistaril] 25 mg PO Q4HR PRN cap PRN Reason: Mild Nausea And/Or Anxiety Sennosides-Docusate Sodium [Senokot-S] 1 tab PO BID #60 tablet Ipratropium-Albuterol Nebulize [Duoneb 0.5 mg-3 mg/3 ml Soln] 3 ml INHALATION RT-TID each Continue Losartan [Cozaar] 50 mg PO DAILY Atorvastatin [Lipitor] 20 mg PO HS Donepezil [Aricept] 5 mg PO DAILY Terbinafine [LamISIL] 250 mg PO DAILY Cholecalciferol (Vitamin D3) [Vitamin D3 (50 Mcg = 2000 Iu)] 50 mcg PO DAILY Ferrous Sulfate [Iron] 325 mg PO DAILY Discontinued traMADol HCL 50 mg PO DAILY No Action Meloxicam [Mobic] 7.5 mg PO DAILY Discharge Medication List Atorvastatin [Lipitor] 20 mg PO HS 10/26/23 [History] Cholecalciferol (Vitamin D3) [Vitamin D3 (50 Mcg = 2000 Iu)] 50 mcg PO DAILY 10/26/23 [History] Donepezil [Aricept] 5 mg PO DAILY 10/26/23 [History] Losartan [Cozaar] 50 mg PO DAILY 10/26/23 [History] Meloxicam [Mobic] 7.5 mg PO DAILY 10/26/23 [History] Terbinafine [LamISIL] 250 mg PO DAILY 10/26/23 [History] Aspirin [Adult Low Dose Aspirin EC] 81 mg PO BID #1 tab 10/28/23 [Rx] HYDROcodone/APAP 5-325MG [[place] 5-325] 1 - 2 tab PO Q6HR PRN #32 tab 10/28/23 [Rx] Sennosides-Docusate Sodium [Senokot-S] 1 tab PO BID #60 tablet 10/28/23 [Rx] Acetaminophen Tab [Tylenol] 650 mg PO Q6HR PRN tab 10/30/23 [Rx] Aspirin 81 mg PO BID tab 10/30/23 [Rx] Ferrous Sulfate [Iron] 325 mg PO DAILY 10/30/23 [History] Ipratropium-Albuterol Nebulize [Duoneb 0.5 mg-3 mg/3 ml Soln] 3 ml INHALATION RT-TID each 10/30/23 [Rx] Magnesium Hydroxide [Milk of Magnesia] 2,400 mg PO DAILY PRN ml 10/30/23 [Rx] Pantoprazole [Protonix] 40 mg PO AC-BRKFST tab 10/30/23 [Rx] Sennosides-Docusate Sodium [Senokot-S] 2 each PO HS tab 10/30/23 [Rx] carvediloL [Coreg] 1.5625 mg PO BID-W/MEALS tab 10/30/23 [Rx] hydrOXYzine pamoate [Vistaril] 25 mg PO Q4HR PRN cap 10/30/23 [Rx] Follow up Appointment(s)/Referral(s): Al Andrade MD [Primary Care Provider] - 1-2 days Alejandro Staton MD [Medical Doctor] - 11/14/23 10:35 am Activity/Diet/Wound Care/Special Instructions: May bear weight as tolerated with walker. May shower. Report any problems to our office. [phone]. Discharge Disposition: TRANSFER TO SNF/ECF
[2023-10-31 13:09] LABS: Basophils # (A) 0.1 k/uL (0-0.2); Basophils % (A) 1 %; Eosinophils # (A) 0.2 k/uL (0-0.7); Eosinophils % (A) 2 %; HCT 25.4 % (34.0-46.0); HGB 8.3 gm/dL (11.4-16.0); Lymphocytes # (A) 0.9 k/uL (1.0-4.8); Lymphocytes % (A) 9 %; MCH 31.5 pg (25.0-35.0); MCHC 32.8 g/dL (31.0-37.0); Mean Platelet Volume 7.4; Monocytes # (A) 0.6 k/uL (0-1.0); Monocytes % (A) 6 %; Neutrophils # (A) 8.2 k/uL (1.3-7.7); Neutrophils % (A) 82 %; Platelet Count 445 k/uL (150-450); RBC 2.65 m/uL (3.80-5.40); RDW 14.8 % (11.5-15.5); WBC 10.1 k/uL (3.8-10.6)
[2023-10-31 14:11] VITALS: BP 114/55; TEMP 98.7
[2023-10-31 16:12] VITALS: PULSE 104
== END 2023-10-31 16:54 | DRG 480 ==
LOC: EC 05:45 → 4SSUR 09:28
PROVIDERS: ADMIT Orthopaedic Surgery; ATTEND Orthopaedic Surgery
PROC: 0QS736Z Reposition Left Upper Femur with Intramedullary Internal Fixation Device, Percutaneous Approach (ICD-10-PCS; principal; 2023-10-26 11:55)
DX: S72.142A Displaced intertrochanteric fracture of left femur, initial encounter for closed fracture (principal); G93.41 Metabolic encephalopathy; W10.9XXA Fall (on) (from) unspecified stairs and steps, initial encounter; Z79.1 Long term (current) use of non-steroidal anti-inflammatories (NSAID); Z79.899 Other long term (current) drug therapy; F03.90 Unspecified dementia, unspecified severity, without behavioral disturbance, psychotic disturbance, mood disturbance, and anxiety; E66.9 Obesity, unspecified; Z68.28 Body mass index [BMI] 28.0-28.9, adult; D64.9 Anemia, unspecified; I10 Essential (primary) hypertension; M25.572 Pain in left ankle and joints of left foot
CPT/HCPCS: 36415; 51702; 64447; 71045; 73502; 74176; 80053; 84484; 85025; 85027; 85610; 85730; 86850; 86900; 86901; 86920; 93005; 94640; 96372; 96374; 99285